=== PATIENT | male | born 1990 | race Caucasian/White ===

== ENCOUNTER 2018-11-25 08:36 | Day surgery (SDC) | payer OTHER ==
[2018-11-25] VITALS (8 sets, daily range): BP systolic 106–137; BP diastolic 69–83; PULSE 60–81; RESP 14–27; Ht 172.7 cm; Wt 142.0 kg
[~2018-11-25] VITALS: Ht 172.7 cm; Wt 142.0 kg
[~2018-11-25 08:36] MED LIST: METF100010 PO
[2018-11-25] MEDS ORDERED: CEFAZOLIN 2 GM/50 ML (PMX) 50 ML IVPB ONE (09:00)
[2018-11-25] MEDS ORDERED: SOD CHLORIDE 0.9% 1,000 ML IV SCH (09:00)
[2018-11-25] MEDS ORDERED: BUPIVACAINE 0.25% (MPF) 30 ML INJ ONE (11:26)
[2018-11-25] MEDS ORDERED: CEFAZOLIN 1 GM INJ ONE (12:07)
[2018-11-25] MEDS ORDERED: FENTAnyl 50 MCG/ML VIAL ONE (12:08)
[2018-11-25] MEDS ORDERED: MIDAZOLAM 1 MG/ML 2 ML INJ ONE (12:08)
[2018-11-25] MEDS ORDERED: ONDANSETRON 4 MG INJ IV PRN (12:30)
[2018-11-25] MEDS ORDERED: LABETALOL HCL 20MG INJ IV PRN (12:30)
[2018-11-25] MEDS ORDERED: hydrALAzine 20 MG INJ IV PRN (12:30)
[2018-11-25] MEDS ORDERED: HYDROCODONE/APAP (5/325) TAB PO ONE (13:00)
[2018-11-25] MEDS ORDERED: LIDOCAINE 2% (MDV) 20 ML INJ ONE (13:09)
[2018-11-25] MEDS ORDERED: BUPIVACAINE 0.5% (SDV) 30 ML INJ ONE (13:09)
== END 2018-11-25 14:15 | disposition home or self-care (01) ==
LOC: SDS 08:36
PROVIDERS: ATTEND Surgery
DX: L72.0 Epidermal cyst (principal); I10 Essential (primary) hypertension; E11.9 Type 2 diabetes mellitus without complications
CPT/HCPCS: 82962; 88307; J0690; J2250; J3010